=== PATIENT | male | born 1930 | race Caucasian/White ===

== ENCOUNTER 2016-11-26 20:55 | Observation (INO) | payer MEDICARE, OTHER ==
[2016-11-26] MEDS ORDERED: DEXTROSE 50% 1 VIAL SOL IV ONE ×2 (21:14→21:17)
[2016-11-26] MEDS ORDERED: SODIUM CHLORIDE 0.9% FLUSH 10 ML SOL IV PRN (21:20)
[2016-11-26] MEDS ORDERED: ACETAMINOPHEN 325 MG PO ONE (21:37)
[2016-11-26] MEDS ORDERED: ACETAMINOPHEN 325 MG ONE (21:39)
[2016-11-26] MEDS ORDERED: WARFARIN SODIUM 1 MG TAB PO SCH (22:15)
[2016-11-27 03:21] VITALS: RESP 20
[2016-11-27] MEDS ORDERED: Non-Formulary Medication MISC (Cetirizine 10 Mg 10 MG) PO SCH (07:00)
[2016-11-27] MEDS ORDERED: OMEPRAZOLE 20 MG PO SCH (07:00)
[2016-11-27] MEDS ORDERED: CETIRIZINE HYDROCHLORIDE 10 MG TAB PO SCH (07:00)
[2016-11-27] MEDS ORDERED: CARVEDILOL 12.5 MG TAB PO SCH (07:00)
[2016-11-27] MEDS ORDERED: PANTOPRAZOLE SODIUM 40 MG ECT PO SCH (09:00)
[2016-11-27 10:05] VITALS: PULSE 60; TEMP 97; O2SAT 98
[2016-11-27 10:15] VITALS: BP 90/53
[2016-11-27] MEDS ORDERED: CARBIDOPA/LEVODOPA 25/100 TAB PO SCH (11:00)
[2016-11-27] MEDS ORDERED: DONEPEZIL 10 MG TAB PO SCH (18:00)
[2016-11-27] MEDS ORDERED: WARFARIN SODIUM 2 MG TAB PO SCH ×2 (18:00→22:05)
[2016-11-27] MEDS ORDERED: ROPINIROLE HCL 1 MG TAB PO SCH (20:00)
[2016-11-27] MEDS ORDERED: MEMANTINE HYDROCHLORIDE 28 MG PO SCH (21:00)
[2016-11-27] MEDS ORDERED: LISINOPRIL 5 MG TAB PO SCH (22:00)
[2016-11-27] MEDS ORDERED: TAMSULOSIN HYDROCHLORIDE 0.4 MG CAP PO SCH (22:00)
[2016-11-28] MEDS ORDERED: WARFARIN SODIUM 1 MG TAB PO SCH (18:00)
== END 2016-11-27 10:55 | disposition home or self-care (01) | DRG 918 ==
LOC: ED 20:55 → ACUTE CARE 21:45
PROVIDERS: ADMIT Family Medicine; ATTEND Family Medicine
DX: T38.3X1A Poisoning by insulin and oral hypoglycemic [antidiabetic] drugs, accidental (unintentional), initial encounter (principal); E16.0 Drug-induced hypoglycemia without coma
CPT/HCPCS: 82962; 96374; 99218; 99284

== ENCOUNTER 2017-03-16 10:13 | Observation (INO) | payer MEDICARE, OTHER ==
[2017-03-16] MEDS ORDERED: SODIUM CHLORIDE 0.9% 1000ML 1,000 ML IV ONE (10:23)
[2017-03-16 10:40] LABS: BASOPHILS % (AUTO) 1 % (0-3); EOSINOPHILS % (AUTO) 2 % (0-9); HEMATOCRIT 41 % (39-53); MEAN CORPUSCULAR HGB CONC 35.2 gm/dl (32.0-36.0); MEAN CORPUSCULAR VOLUME 91 fL (80-100); MONOCYTES % (AUTO) 13.5 % (0-12); NEUTROPHILS % (AUTO) 67.7 % (37-80)
[2017-03-16 11:04] LABS: ALBUMIN 2.8 gm/dl (3.4-5.0); ALT 8 IU/L (14-63); CALCIUM 8.5 mg/dl (8.5-10.1); GLOM FILT RATE 61 mL/min (>60); POTASSIUM 3.8 mMol/L (3.5-5.1); SODIUM 145 mMol/L (136-145)
[2017-03-16 11:29] LABS: APPEARANCE,URINE Slightly Cloudy; BILIRUBIN,URINE NEGATIVE (NEGATIVE); COLOR,URINE Yellow; GLUCOSE, URINE (UA) NEGATIVE (NEGATIVE); KETONES,URINE NEGATIVE (NEGATIVE); LEUKOCYTE ESTERASE ,URINE NEGATIVE (NEGATIVE); NITRATE,URINE NEGATIVE (NEGATIVE); OCCULT BLOOD,URINE NEGATIVE (NEG-TRACE)
[2017-03-16] MEDS ORDERED: CARVEDILOL 12.5 MG TAB PO ONE (12:44)
[2017-03-16] MEDS: AMOXICILLIN 125/5 ML BOTTLE PO SCH ×2 (15:42→21:54)
[2017-03-16] MEDS: CARBIDOPA/LEVODOPA 25/100 TAB PO SCH ×5 (15:45→20:03)
[2017-03-16] MEDS: WARFARIN SODIUM 2 MG TAB PO SCH (17:14)
[2017-03-16] MEDS: SODIUM CHLORIDE 0.9% FLUSH 10 ML SOL IV SCH (20:05)
[2017-03-16] MEDS: DONEPEZIL 5 MG 5 MG TAB PO SCH (20:06)
[2017-03-16] MEDS: TAMSULOSIN HYDROCHLORIDE 0.4 MG CAP PO SCH (20:08)
[2017-03-16] MEDS: MEMANTINE HYDROCHLORIDE 28 MG PO SCH (20:09)
[2017-03-16] MEDS ORDERED: CARVEDILOL 12.5 MG TAB PO SCH (21:00)
[2017-03-17] MEDS: SODIUM CHLORIDE 0.9% FLUSH 10 ML SOL IV SCH ×4 (02:53→21:12)
[2017-03-17] MEDS ORDERED: PANTOPRAZOLE SODIUM 40 MG ECT PO SCH (07:00)
[2017-03-17 07:12] LABS: BASOPHILS % (AUTO) 2 % (0-3); EOSINOPHILS % (AUTO) 2 % (0-9); HEMATOCRIT 42 % (39-53); MEAN CORPUSCULAR HGB CONC 35.8 gm/dl (32.0-36.0); MEAN CORPUSCULAR VOLUME 91 fL (80-100); MONOCYTES % (AUTO) 14.5 % (0-12); NEUTROPHILS % (AUTO) 67.8 % (37-80)
[2017-03-17 07:24] LABS: CALCIUM 9.2 mg/dl (8.5-10.1); GLOM FILT RATE 72 mL/min (>60); POTASSIUM 4.2 mMol/L (3.5-5.1); SODIUM 143 mMol/L (136-145)
[2017-03-17] MEDS: AMOXICILLIN 125/5 ML BOTTLE PO SCH ×3 (08:59→21:12)
[2017-03-17] MEDS: CARBIDOPA/LEVODOPA 25/100 TAB PO SCH ×3 (09:00→17:08)
[2017-03-17] MEDS: PANTOPRAZOLE SODIUM 40 MG ECT PO SCH (09:01)
[2017-03-17] MEDS: CETIRIZINE HYDROCHLORIDE 10 MG TAB PO SCH (09:02)
[2017-03-17] MEDS: WARFARIN SODIUM 2 MG TAB PO SCH (17:08)
[2017-03-17 17:19] VITALS: RESP 16
[2017-03-17] MEDS: MEMANTINE HYDROCHLORIDE 28 MG PO SCH (21:12)
[2017-03-17] MEDS: TAMSULOSIN HYDROCHLORIDE 0.4 MG CAP PO SCH (21:12)
[2017-03-17] MEDS: DONEPEZIL 5 MG 5 MG TAB PO SCH (21:12)
[2017-03-18] MEDS: SODIUM CHLORIDE 0.9% FLUSH 10 ML SOL IV SCH (04:55)
[2017-03-18] MEDS: CARBIDOPA/LEVODOPA 25/100 TAB PO SCH ×2 (06:45→11:24)
[2017-03-18 08:20] VITALS: BP 111/75; PULSE 103; TEMP 97.8; O2SAT 95
[2017-03-18] MEDS: AMOXICILLIN 125/5 ML BOTTLE PO SCH (08:33)
[2017-03-18] MEDS: PANTOPRAZOLE SODIUM 40 MG ECT PO SCH (08:34)
[2017-03-18] MEDS: CETIRIZINE HYDROCHLORIDE 10 MG TAB PO SCH (08:34)
== END 2017-03-18 11:30 | DRG 312 ==
LOC: ED 10:13 → ACUTE CARE 12:31 → UNDOADMOB 12:31 → ACUTE CARE 13:20
PROVIDERS: ADMIT Family Medicine; ATTEND Family Medicine
DX: R55 Syncope and collapse (principal); F02.81 Dementia in other diseases classified elsewhere, unspecified severity, with behavioral disturbance; G31.83 Neurocognitive disorder with Lewy bodies; I48.2 Chronic atrial fibrillation; Z79.01 Long term (current) use of anticoagulants
CPT/HCPCS: 36415; 70450; 71010; 80048; 80053; 81001; 84484; 85025; 87088; 93005; 96365; 96366; 99284; 99285

== ENCOUNTER 2018-04-01 11:39 | Inpatient (IN) | payer MEDICARE, OTHER ==
[2018-04-01 13:38] LABS: BASOPHILS % (AUTO) 1 % (0-3); EOSINOPHILS % (AUTO) 1 % (0-9); HEMATOCRIT 44 % (39-53); HEMOGLOBIN 14.5 gm/dl (13.5-17.7); LYMPHOCYTES % (AUTO) 10.2 % (10-50); MEAN CORPUSCULAR HEMOGLOBIN 30.7 pg (27.0-32.0); MEAN CORPUSCULAR HGB CONC 33.2 gm/dl (32.0-36.0); MEAN CORPUSCULAR VOLUME 92 fL (80-100); MONOCYTES % (AUTO) 4.8 % (0-12); NEUTROPHILS % (AUTO) 83.5 % (37-80)
[2018-04-01 13:48] LABS: INR 3.4 (0.86-1.12)
[2018-04-01 13:50] LABS: LACTIC ACID 1.2 mMol/L (0.0-2.0)
[2018-04-01 13:53] LABS: ALBUMIN 3.1 gm/dl (3.4-5.0); BILIRUBIN,TOTAL 1.2 mg/dl (0.2-1.0); CALCIUM 9.3 mg/dl (8.5-10.1); CREATININE 1.14 mg/dl (0.80-1.30); POTASSIUM 3.9 mMol/L (3.5-5.1); TOTAL PROTEIN 6.6 gm/dl (6.4-8.2)
[2018-04-01 13:59] LABS: CARBON DIOXIDE 30.7 mEq/L (21-32)
[2018-04-01] MEDS ORDERED: SODIUM CHLORIDE 0.9% 100 ML 100 ML IV ONE ×2 (15:16→22:45)
[2018-04-01] MEDS ORDERED: AMPICILLIN/SULBACTAM 3 GM PDS ONE ×2 (15:16→22:45)
[2018-04-01] MEDS: SODIUM CHLORIDE 0.9% FLUSH 10 ML SOL IV SCH ×2 (15:22→22:54)
[2018-04-01] MEDS: AMPICILLIN/SULBACTAM 3 GM PDS 3 GM in SODIUM CHLORIDE 0.9% 100 ML 100 ML IV SCH ×2 (15:22→22:54)
[2018-04-01] MEDS ORDERED: BISACODYL 10 MG SUP PR PRN (17:25)
[2018-04-01] MEDS ORDERED: MAGNESIUM HYDROXIDE 30 ML SUS PO PRN (17:25)
[2018-04-01] MEDS ORDERED: DONEPEZIL 5 MG 5 MG TAB ONE (20:07)
[2018-04-01] MEDS: ACETAMINOPHEN 500 MG 500 MG TAB PO SCH (20:12)
[2018-04-01] MEDS: Non-Formulary Medication MISC (Carbidopa/Levodopa 25/100 2 TAB) PO SCH (20:13)
[2018-04-01] MEDS: MEMANTINE HYDROCHLORIDE 28 MG PO SCH (20:14)
[2018-04-01] MEDS ORDERED: TAMSULOSIN HYDROCHLORIDE 0.4 MG CAP PO SCH (21:00)
[2018-04-01] MEDS ORDERED: DONEPEZIL 10 MG TAB PO SCH (21:00)
[2018-04-02] MEDS: SODIUM CHLORIDE 0.9% FLUSH 10 ML SOL IV SCH (06:28)
[2018-04-02] MEDS: Non-Formulary Medication MISC (Carbidopa/Levodopa 25/100 2 TAB) PO SCH ×2 (06:29→11:56)
[2018-04-02] MEDS: AMPICILLIN/SULBACTAM 3 GM PDS 3 GM in SODIUM CHLORIDE 0.9% 100 ML 100 ML IV SCH (06:29)
[2018-04-02] MEDS ORDERED: PANTOPRAZOLE SODIUM 40 MG ECT PO SCH (07:00)
[2018-04-02] MEDS ORDERED: OMEPRAZOLE 20 MG CAPSULE PO SCH (07:00)
[2018-04-02 08:14] LABS: INR 3.32 (0.86-1.12)
[2018-04-02 08:19] VITALS: BP 115/78; PULSE 116; RESP 24; TEMP 97.7
[2018-04-02] MEDS ORDERED: CETIRIZINE HYDROCHLORIDE 10 MG TAB PO SCH (09:00)
[2018-04-02] MEDS ORDERED: Non-Formulary Medication MISC (Cetirizine 10 Mg 10 MG) PO SCH (09:00)
[2018-04-02] MEDS ORDERED: CHOLECALCIFEROL 1,000 IU TAB PO SCH (09:00)
[2018-04-02] MEDS: MEMANTINE HYDROCHLORIDE 28 MG PO SCH (09:17)
[2018-04-02] MEDS: ACETAMINOPHEN 500 MG 500 MG TAB PO SCH (09:21)
[2018-04-02 12:42] VITALS: O2SAT 94
== END 2018-04-02 12:55 | DRG 179 ==
LOC: ED 11:39 → UNDOADMIN 14:26 → ACUTE CARE 14:26
PROVIDERS: ADMIT Family Medicine; ATTEND Family Medicine
DX: J69.0 Pneumonitis due to inhalation of food and vomit (principal); R50.9 Fever, unspecified; G31.83 Neurocognitive disorder with Lewy bodies; I10 Essential (primary) hypertension; I48.91 Unspecified atrial fibrillation
CPT/HCPCS: 36415; 70450; 71045; 80053; 85025; 85610; 87040; 99222; 99291; J0295; A6232; A9270-GY